=== PATIENT | female | born 1940 | race Caucasian/White ===

== ENCOUNTER 2024-12-23 07:49 | Day surgery (SDC) | payer MEDICARE, OTHER, SELFPAY ==
[2024-12-01 10:50] VITALS: BMI 31.1
--- NOTE | 2024-12-01 12:17 | HPS.HSE ---
Family Physician
-
Family Physician: NO INTERVIEW UNKNOWN
Chief Complaint
-
Paroxysmal supraventricular tachycardia.
History of Present Illness
The patient is an 83 year old female presenting today for paroxysmal supraventricular tachycardia. Her primarily language is Malay. She is accompanied by her daughter, Nita, today for further translation. The patient reports a
history of progressively worsening palpitations, chest burning/discomfort, shortness of breath, and lightheadedness associated with this diagnosis. Her recent 14 day ZIO demonstrated 79 episodes of supraventricular tachycardia, with the fastest
episode being 10 seconds at 206 beats per minute and the longest episode being 1 hour. She is on current pharmacological therapy with Metoprolol Succinate. Dosing of this medication has been adjusted several times given the severity of her reported
symptoms. She is interested in pursuing with supraventricular tachycardia ablation for further arrhythmia management. She denies any current complaints today such as chest pain or shortness of breath at rest, nausea, vomiting, diarrhea, dizziness,
cough, sore throat, or fever.
Medical History
Past Medical History
Past Medical History: Reports Other
Additional Past Medical History:
1. Paroxysmal supraventricular tachycardia, pharmacological therapy with Metoprolol Succinate.
2. Labile hypertension with multiple medication intolerances.
3. Chronic diastolic heart failure, preserved ejection fraction.
4. Mild pulmonary hypertension.
5. Mild mitral regurgitation.
6. 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
7. GERD.
8. Hiatal hernia.
9. Hemorrhoids with intermittent rectal bleeding.
10. Hepatic hemangioma.
11. Questionable TIA, 10/2023, without residual deficits.
12. Remote migraines.
13. Benign essential tremor.
14. Osteoarthritis.
15. Depression.
16. Anxiety.
17. Metabolic syndrome with obesity, BMI 31.1.
Past Surgical History: Reports Other
Additional Past Surgical History:
1. Appendectomy.
2. Endoscopy.
Social History
Tobacco: Former Smoker (Reports infrequent cigarette smoking remotely. )
Alcohol: None
Living: Other (She lives with her daughter in a split level home. )
Family History
Family History: Not pertinent
Allergies / Home Medications
Allergy/Medication List:
Home medications:
1. Aspirin 81 mg p.o. daily as needed.
2. Vitamin B12 1000 mcg intramuscular every month.
3. Famotidine 40 mg p.o. daily.
4. Furosemide 20 mg p.o. every other day.
5. Hydralazine 25 mg p.o. daily as needed.
6. Lorazepam 1 mg p.o. daily.
7. Metoprolol Succinate 50 mg p.o. three times a day.
8. Nifedipine 15 mg p.o. twice a day.
9. Nitroglycerin 0.4 mg sublingual every 5 minutes as needed (maximum of 3 doses).
10. Omeprazole 40 mg p.o. daily.
11. Zenpep 1 capsule p.o. three times a day.
Allergies: No known allergies.
Review of Systems
-
A 12 point ROS was completed and negative except as noted: Yes
Physical Exam
Vital Signs
Blood pressure 137/75. Heart rate 55. Respirations 18. Pulse ox 100% on room air.
Height 5 feet, 4 inches. Weight 81.1 kg. BMI 31.1.
Physical Exam
General: Well Developed, Well Nourished and No Apparent Distress
HEENT: NormoCephalic, Moist mucous membranes, Atraumatic and PERRLA
Respiratory: Clear
Cardiac: Bradycardia
GI: Soft, Non Tender, Non Distended and Other (Obese. )
Musculoskeletal: Normal Gait & Station and Other (+2 bilateral lower extremity edema. )
Skin: Warm and Dry
Neuro: AO x 3 and Nonfocal/grossly intact
Laboratory Results
-
DIAGNOSTIC STUDIES as of 12/01/2024: White blood cell count 10.3. Hemoglobin 12.8. Platelet count 215,000. Sodium 137. Potassium 4.2. BUN 15. Creatinine 0.8. Glucose 105. Calcium 10.2. Magnesium 1.8. AST 20. ALT 15. Albumin 4.0.
EKG 12/01/2024: Sinus bradycardia. Low voltage QRS.
Echocardiogram 12/24/2022: Normal biventricular systolic function. Mild pulmonary hypertension. Mild mitral regurgitation. Mild ectasia of the ascending aorta, 36 mm in diameter.
Impression/Plan
-
IMPRESSION/PLAN:
1. Paroxysmal supraventricular tachycardia: The patient is in need of a supraventricular tachycardia ablation with Dr. Adalberto Ross on 12/23/2024. The benefits and risks of the procedure have been explained to the patient. The patient understands
these risks and wishes to proceed. She has been advised to hold her home dosing of Metoprolol Succinate 5 days prior to her procedure. Should palpitations occur while holding Metoprolol, she may take 25 mg of this medication as needed.
[2024-12-23] VITALS (10 sets, daily range): BP systolic 93–139; BP diastolic 63–78; BMI 31.1
--- NOTE | 2024-12-23 12:26 | ITS.CL.ABL ---
Addendum entered and electronically signed by Adalberto Ross MD 12/23/24 12:54:
Speaking with the patient's daughter she did not withhold metoprolol prior to procedure and took at least 3 doses of metoprolol yesterday for tachycardia. The daughter tells me that she may have taken 1-2 extra metoprolol yesterday. I was not
aware of this prior to procedure. This may explain some of her changes in AV conduction and as such we will lower her metoprolol to 50 mg once daily at discharge as long as there is no signs of more advanced conduction disease post procedure.
Currently she is conducting one-to-one with a stable and normal WI interval in holding area.
Original Note:
Business Management Manager - Ablation
Ablation
Procedure Report:
ELECTROPHYSIOLOGY ABLATION REPORT
Date of Procedure: December 23, 2024
Referring: Dr. Genaro Bird
INDICATION: Documented narrow complex abrupt onset offset tachycardia with a short RP relationship
HISTORY: As above refractory to 150 mg daily of metoprolol
PROCEDURE:
Baseline intracardiac measurements were obtained in sinus rhythm.��HRA, HIS, RVA and CS catheters were placed. 3D mapping with [employer] mapping system was performed.
Atrial decremental extrastimuli were delivered from the HRA and the CS.��Single and double extrastimuli as well as burst pacing were performed from both sites in both the baseline state and with isoproterenol infusion.��Atrial and AVN antegrade
ERP�s were determined.��Antegrade as well as retrograde AVN Wenckenach CL�s were determined.
Vascular access was performed under direct ultrasound guidance with an 8 and 6 Bulgarian sheaths in the right femoral vein and a 7 and 6 Bulgarian sheath in the left femoral vein.
MEASUREMENTS:
BASELINE
A-A:�1080 ms
P-P:���1080 ms
A-H:�88 ms
H-V���58 ms
P-R:���170 ms
QRS:�80 ms
QT:���380 ms
SNRT: Normal at 600 ms
AVN Wenckebach: 440 ms at baseline. Postablation between 600 to 650 ms with the patient was under anesthesia. WI interval was stable at 170 ms post ablation with a stable HV interval post ablation.
AVN Fast Pathway ERP: 800�4 60 ms
AVN Slow Pathway ERP: 800�4 20 ms
HIS-Purkinje System: Normal; no distal block
Retrograde Conduction Decremental, Retrograde Block 540 ms
Evidence for typical AV Marzena Reentry as the tachycardia diagnosis included: (1)��An concentric atrial activation sequence during SVT with earliest atrial activation located at the fast pathway position along the decapolar CS catheter, (2)
ventricular pacing from the RVA showed earliest retrograde atrial activation at the fast pathway position along the decapolar CS catheter, matching that seen during SVT, (3) Atrial activation during SVT began within the first 60 ms of the QRS
complex, (4) Initiation of SVT was dependent on a critical AH interval (slow pathway engagement), (5) Ventricular pacing at a CL 20-30 ms faster than the SVT CL during the SVT demonstrated advancement of the atrial electrogram to the pacing CL and
when
pacing was terminated, a V-A-V pattern with continuation of SVT was observed practically excluding AT as the SCT mechanism, post pacing interval was greater than 115 ms went over driving the circuit from the ventricle. (6) in addition to the VAV
response and maneuver we were also able to reliably terminate the tachycardia from the ventricle without activating the atrium also supporting AV marzena reentry mechanism for tachycardia
SVT was initiated by atrial extrastimuli and atrial burst pacing
SVT could be terminated by ventricular overdrive pacing
The SVT cycle length was 500 ms.; SVT was well-tolerated hemodynamically.
Radiofrequency Catheter Ablation:
We then exchanged the 8 Bulgarian short sheath for 10 Bulgarian steerable long sheath over wire to map and ablate the slow pathway of the AV node. A 4 mm sapphire catheter was brought to the field.
RF applications were delivered during ventricular pacing using a temperature controlled system.��RF application resulted in nearly immediate junctional beats at a 1-4 AV ratio and a fractionated atrial electrogram without any his recording.
Ablation was performed from the low to mid CS ostium.��The patient's junctional beats were relatively slow between approximately 500 ms and 700 ms without any rapid junctional beats or change in AV conduction noted during ablation. Post ablation
there was a change in the patient's AV Wenke block although the patient was under sedation as noted above. The patient is stable WI interval and HV interval post ablation. The patient was noninducible for tachycardia post ablation. A 4 mm tip RF
nonirrigated catheter was used with the maximum power��set to 50 W and the maximum temperature set to 52�degrees C.
After a 30 minute waiting period, stimulation was repeated.��Midline retrograde activation was preserved during RV apical stimulation.
No sustained SVT was induced, a marked contrast to the pre-ablation situation.
COMPLICATIONS: None
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 Stable WI interval and HV interval post ablation with a modest change in AV conduction noted. The patient was noninducible for tachycardia after ablation.
RECOMMENDATIONS:
1. Lower metoprolol to 50 mg daily
2. Monitor on telemetry post procedure and if AV conduction remains stable can consider same-day discharge. If there is any changes in AV conduction we would monitor overnight.
[2024-12-23] MEDS: TYLENOL ORAL SOLUTION 650 MG PO (13:15)
[2024-12-23] MEDS: PEPCID 40 MG PO (15:46)
== END 2024-12-23 17:00 | disposition home or self-care (01) ==
LOC: CATH 07:49
PROVIDERS: ATTENDING PHYSICIAN Internal Medicine Cardiovascular Disease; FAMILY PHYSICIAN Family Medicine; OTHER PHYSICIAN Internal Medicine Cardiovascular Disease
DX: I47.19 Other supraventricular tachycardia (principal); Z79.899 Other long term (current) drug therapy; I11.0 Hypertensive heart disease with heart failure; I27.20 Pulmonary hypertension, unspecified; I34.0 Nonrheumatic mitral (valve) insufficiency; K21.9 Gastro-esophageal reflux disease without esophagitis; K44.9 Diaphragmatic hernia without obstruction or gangrene; G25.0 Essential tremor; M19.90 Unspecified osteoarthritis, unspecified site; G43.909 Migraine, unspecified, not intractable, without status migrainosus; D18.09 Hemangioma of other sites; F32.A Depression, unspecified; F41.9 Anxiety disorder, unspecified; E88.810 Metabolic syndrome; Z87.891 Personal history of nicotine dependence; Z79.82 Long term (current) use of aspirin
CPT/HCPCS: C1730; C1894; C1766; C1733; 76937; 93005; 93623; 93653